=== PATIENT | female | born 1955 ===

== ENCOUNTER → 2017-04-23 11:16 | Outpatient (CLI) | payer MEDICARE ==
[2017-04-23 13:53] LABS: BASOPHILS 0.2 % (0-2); EOSINOPHILS 4.6 % (0-7); HEMATOCRIT 41.6 % (36.0-48.0); HEMOGLOBIN 13.8 g/dL (12-16); IMMATURE GRANULOCYTES 0.3 % (0-5); MCH 29.1 pg (26.0-34.0); MCHC 33.2 g/dL (31.0-37.0); MCV 87.8 fL (80.0-100.0); MEAN PLATELET VOLUME 11.3 fL (7.4-10.4); NEUTROPHILS 71.9 % (40-80); PLATELET COUNT 205 10x3/uL (130-400); RBC 4.74 10x6/uL (4.00-5.40); RDW 13.7 % (11.5-14.5); WBC 12.8 10x3/uL (4.8-10.8)
[2017-04-23 14:13] LABS: ALKALINE PHOSPHATASE 102 U/L (46-116); ALT (SGPT) 214 U/L (10-68); BILIRUBIN - TOTAL 0.47 mg/dL (0.2-1.3); CALC OSMOLALITY 273 mosm/kg (275-300); CALCIUM 8.5 mg/dL (8.5-10.1); CARBON DIOXIDE 27.6 mmol/L (21.0-32.0); CHLORIDE - SERUM 99 mmol/L (98-107); CREATININE - SERUM 0.7 mg/dL (0.6-1.3); GLUCOSE 102 mg/dL (74-106); POTASSIUM - SERUM 4.7 mmol/L (3.5-5.1); PROTEIN - SERUM 7.7 g/dL (6.4-8.2); SODIUM 136 mmol/L (136-145); UREA NITROGEN 17 mg/dL (7-18); eGFR NON AFRICAN AMERICAN 90 mL/min (90-120)
== END | disposition home or self-care (01) ==
LOC: D.LABREF 11:16
PROVIDERS: Student in an Organized Health Care Education/Training Program
DX: L03.90 Cellulitis, unspecified (principal); Z79.899 Other long term (current) drug therapy

== ENCOUNTER → 2017-05-05 11:47 | Outpatient (CLI) | payer MEDICARE ==
[2017-05-05 14:44] LABS: ALBUMIN 3.7 g/dL (3.4-5.0); ANION GAP 14.5 mmol/L (8-16); BILIRUBIN - TOTAL 0.25 mg/dL (0.2-1.3); CARBON DIOXIDE 31.7 mmol/L (21.0-32.0); CREATININE - SERUM 0.9 mg/dL (0.6-1.3); POTASSIUM - SERUM 5.2 mmol/L (3.5-5.1); PROTEIN - SERUM 7.8 g/dL (6.4-8.2)
== END | disposition home or self-care (01) ==
LOC: D.LDO 11:47
PROVIDERS: Student in an Organized Health Care Education/Training Program
DX: B38.9 Coccidioidomycosis, unspecified (principal)